=== PATIENT | female | born 1960 | race Caucasian/White ===

== ENCOUNTER 2021-09-30 13:32 | Inpatient (IN) | payer OTHER ==
[2021-10-09] MEDS ORDERED: ULTRACET PO (12:30)
[2021-10-09] MEDS ORDERED: INTEGRA F CAPS1 EACH PO (12:30)
[2021-10-09] MEDS ORDERED: PRILOSEC OTC20 MG PO (12:30)
== END 2021-10-09 17:04 | disposition home or self-care (01) | DRG 334 ==
LOC: EDBD → SURH 10-06 06:25 → O/R 10-06 06:40 → SURG 10-06 06:40 → SURH 10-06 07:00 → SURG 10-06 15:29
PROVIDERS: ADMIT Surgery; ATTEND Surgery
PROC: 07BB4ZZ Excision of Mesenteric Lymphatic, Percutaneous Endoscopic Approach (ICD-10-PCS; 2021-10-06)
PROC: 0DTP4ZZ Resection of Rectum, Percutaneous Endoscopic Approach (ICD-10-PCS; principal; 2021-10-06 07:00)
DX: C18.6 Malignant neoplasm of descending colon (principal); R59.0 Localized enlarged lymph nodes; I10 Essential (primary) hypertension

== ENCOUNTER 2021-11-13 05:36 | Day surgery (SDC) | payer OTHER ==
[~2021-11-13 05:36] MED LIST: AVAPRO75 MG PO; INTEGRA F CAPS1 EACH PO; PRILOSEC OTC20 MG PO; ULTRACET PO
[2021-11-13] MEDS ORDERED: ULTRACET PO (09:21)
== END 2021-11-13 12:00 | disposition home or self-care (01) ==
LOC: CIR.AMB 05:36
PROVIDERS: ATTEND Surgery
DX: C18.6 Malignant neoplasm of descending colon (principal); Z20.822 Contact with and (suspected) exposure to COVID-19